=== PATIENT | female | born 1985 | race African-American/Black ===

== ENCOUNTER 2017-08-25 20:55 | Emergency (ER) | payer OTHER ==
[~2017-08-25] VITALS: Ht 157.5 cm; Wt 65.0 kg
[~2017-08-25 20:55] MED LIST: Z.0.BCPILL PO
[2017-08-25 20:59] VITALS: BP 118/75; PULSE 78; RESP 16; TEMP 98.4; O2SAT 98
[2017-08-25] MEDS ORDERED: PROPARACAINE HCL 0.5% OPHT SOLN 15 ML BTL EACH EYE ONE (22:15)
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
== END 2017-08-25 23:16 | disposition home or self-care (01) ==
LOC: NEPE 20:55
DX: H57.8 Other specified disorders of eye and adnexa (principal); S46.812A Strain of other muscles, fascia and tendons at shoulder and upper arm level, left arm, initial encounter; V89.2XXA Person injured in unspecified motor-vehicle accident, traffic, initial encounter
CPT/HCPCS: 99283